=== PATIENT | male | born 1945 | race Caucasian/White ===

== ENCOUNTER → 2020-01-24 | Outpatient (CLI) | payer MEDICARE, OTHER ==
[2020-01-24 11:01] LABS: POTASSIUM 4.6 MMOL/L (3.6-5.0)
[2020-01-24 11:02] LABS: BILIRUBIN,TOTAL 1.1 MG/DL (0.1-1.0); CALCIUM 9.4 MG/DL (8.5-10.1); CREATININE SERUM 1.32 MG/DL (0.60-1.30); TOTAL PROTEIN 6.9 GM/DL (6.4-8.2)
== END ==
LOC: LAB FS 09:57
PROVIDERS: ATTEND Family Medicine
DX: E78.5 Hyperlipidemia, unspecified (principal)
CPT/HCPCS: 36415; 80053; 80061

== ENCOUNTER → 2021-04-06 | Outpatient (CLI) | payer MEDICARE ==
--- NOTE | 2021-04-06 09:54 | Diagnostic Imaging Report ---
INDICATION: Hyperlipidemia. TECHNIQUE: The CT cardiac calcium score study was performed in the routine fashion with noncontrast images of the heart followed by calculation of the cardiac calcium score. Dose reduction protocol was used. FINDINGS: Raw data images demonstrate normal caliber of the aorta. There is no mediastinal or hilar adenopathy. The visualized portions of the lung toth show no karen consolidation. There is some scarring or atelectasis in the left base. There are coronary calcifications in the LAD territory. The remaining structures appear free of calcium. The coronary calcium score is as follows: 90.6 for LAD, 0 for the remaining territories. IMPRESSION: The ct cardiac calcium score was 90.6 for calcium in the LAD. The remaining territories were negative. The findings are compatible with an overall mild plaque burden. Dictated by: Dictated on workstation # [id number]
== END ==
LOC: RAD FS 08:48
PROVIDERS: ATTEND Family Medicine
DX: E78.5 Hyperlipidemia, unspecified (principal)
CPT/HCPCS: 75571

== ENCOUNTER → 2022-01-31 | Outpatient (CLI) | payer MEDICARE ==
--- NOTE | 2022-01-31 13:33 | Diagnostic Imaging Report ---
PROCEDURE: CT abdomen and pelvis without contrast. TECHNIQUE: Multiple contiguous axial images were obtained through the abdomen and pelvis without the use of intravenous contrast. Auto Exposure Controls were utilized during the CT exam to meet ALARA standards for radiation dose reduction. INDICATION: Hematuria. COMPARISON: No prior studies are available for comparison. FINDINGS: The lung bases are clear. The liver and gallbladder are unremarkable. There is no biliary ductal dilatation. Pancreas and spleen are unremarkable. No adrenal mass is identified. There is a 6 mm nonobstructing calculus in the upper pole of the right kidney. No left-sided renal calculi are seen. No ureteral calculi or hydronephrosis is identified. There is a small cyst in the lower pole of the right kidney measuring 24 mm. Aorta is nonaneurysmal. There is diverticulosis of the descending and sigmoid colon but no evidence of acute diverticulitis. There is no free fluid or fluid collection identified. Bladder is decompressed and diffusely thick walled. Prostate is unremarkable. The bony structures are nonacute. Bony structures demonstrate anterior compression deformity involving the L2 vertebral body, likely chronic. IMPRESSION: 1. 6 mm nonobstructing right renal calculus. No ureteral calculi or hydronephrosis is identified. 2. Diffuse bladder wall thickening. While this could be owing to incomplete distention, possibility of cystitis or chronic bladder outlet obstruction cannot be entirely excluded. 3. Uncomplicated diverticulosis. Dictated by: Dictated on workstation # [id number]
== END ==
LOC: RAD 12:45
PROVIDERS: ATTEND Urology
DX: N20.0 Calculus of kidney (principal); K57.90 Diverticulosis of intestine, part unspecified, without perforation or abscess without bleeding; N32.9 Bladder disorder, unspecified
CPT/HCPCS: 74176

== ENCOUNTER 2022-02-19 05:33 | Outpatient (CLI) | payer MEDICARE ==
[~2022-02-19] VITALS: Ht 197.5 cm; Wt 130.0 kg
== END 2022-02-19 13:10 | disposition home or self-care (01) ==
LOC: PREOP 05:33
PROVIDERS: ATTEND Urology
DX: Z01.818 Encounter for other preprocedural examination (principal)

== ENCOUNTER 2022-02-26 05:51 | Day surgery (SDC) | payer MEDICARE, OTHER ==
[2022-02-26] VITALS (9 sets, daily range): BP systolic 101–135; BP diastolic 67–91
[~2022-02-26] VITALS: Ht 180 cm; Wt 130.0 kg
[2022-02-26] MEDS ORDERED: LACTATED RINGERS 1,000 ML IV PRN (06:30)
[2022-02-26] MEDS ORDERED: cefTRIAXone 1 GM PRE-MIX 50 ML IV ONE ×2 (06:30→06:52)
[2022-02-26] MEDS ORDERED: ONDANSETRON 4 MG/2 ML (SDV) Z0FRAN ONE (06:48)
[2022-02-26] MEDS ORDERED: proPOfol 200 MG/20 ML (DIPRIVAN) VIAL IV ONE (06:48)
[2022-02-26] MEDS ORDERED: MIDAZOLAM 2 MG/2 ML (VERSED) VIAL ONE (06:48)
[2022-02-26] MEDS ORDERED: SEVOFLURANE (ULTANE) 15 ML INHAL SOLN ONE ×2 (06:48→08:13)
[2022-02-26] MEDS ORDERED: fentaNYL INJ 100 MCG/2 ML AMP ONE (06:48)
[2022-02-26] MEDS ORDERED: LIDOCAINE PF 2% 5 ML (XYLOCAINE) VIAL ONE (06:48)
--- NOTE | 2022-02-26 07:26 | Progress Note-Pre Operative ---
Pre-Operative Progress Note Date of Available H&P: Feb 26, 2022 Date H&P Reviewed: Feb 26, 2022 Time H&P Reviewed: 07:26 Changes from last HP NONE Pre-Operative Diagnosis: RT RENAL STONE BEATA CA MD Feb 26, 2022 07:26
--- NOTE | 2022-02-26 07:29 | Progress Note-Post Operative ---
Post-Operative Progess Note Surgeon (s)/Cell Tuber Hand (s) Surgeon BEATA CA MD Cell Tuber Hand: NONE Pre-Operative Diagnosis RT RENAL STONE Post-Operative Diagnosis SAME Procedure & Operative Findings Date of Procedure 02/26/22 Procedure Performed/Findings RT ESWL Anesthesia Type GENERAL Estimated Blood Loss Estimated blood loss (mL): NONE Specimens/Packing Specimens Removed NONE Packing: NONE BEATA CA MD Feb 26, 2022 07:29
--- NOTE | 2022-02-26 07:31 | Discharge Inst-Urology ---
Discharge Inst-Urology Reconcile Patient Problems Problems Reviewed?: Yes Final Diagnosis RT RENAL STONE Patient Instructions/Follow Up Plan/Assessment/Instructions Please make appointment to been seen in office Sunday 03/11, KUB prior to it KUB on way home Post ESWL instructions Increase oral fluids for 48 hours and then as needed. Diet and Activity as tolerated. If questions or concerns contact your physician Or seek help at emergency department. BEATA CA MD Feb 26, 2022 07:30
[2022-02-26] MEDS ORDERED: meTOprolol 5 MG/5 ML (LOPRESSOR) VIAL ONE (07:42)
[2022-02-26] MEDS ORDERED: PHENYLEPHRINE 100 MCG/ML 10 ML (ANESTHESIA) SYR ONE (07:54)
[2022-02-26] MEDS ORDERED: FUROSEMIDE 40 MG/4 ML INJ (LASIX) ONE (08:03)
[2022-02-26] MEDS ORDERED: KETOROLAC 30 MG/ML VIAL ONE (08:03)
[2022-02-26] MEDS ORDERED: NITR-65 PO (08:09)
[2022-02-26] MEDS ORDERED: KETO10TA PO (08:09)
[2022-02-26] MEDS ORDERED: TMSL.4C PO (08:09)
--- NOTE | 2022-02-26 08:10 | Diagnostic Imaging Report ---
INDICATION: Nephrolithiasis-ESWL. TECHNIQUE: Single radiograph of the abdomen 6:12 AM CORRELATION STUDY: CT 01/31/2022 FINDINGS: Approximately 6 mm calcification over the superior pole right kidney. No calcification over the expected course of either ureter. Overlying bowel gas pattern demonstrates moderate amount of stool and gas. No obstruction. IMPRESSION: 1. Approximately 6 mm calcification superimposed over the right renal silhouette. Dictated by: Dictated on workstation # [id number]
[2022-02-26] MEDS ORDERED: ONDANSETRON 4 MG/2 ML (SDV) Z0FRAN IVP PRN (08:30)
--- NOTE | 2022-02-26 10:20 | Diagnostic Imaging Report ---
INDICATION: POST ESWL. TECHNIQUE: 2 radiograph of the abdomen 9:57 AM CORRELATION STUDY: 02/26/2022 FINDINGS: Imaging earlier in the day demonstrated approximately 6 mm calcification over the superior pole of the right kidney. This appears likely significantly fragmented since prior study earlier in the day. Grouped, coarse calcification are suggested over the right renal silhouette. Additionally, questionable calcification over expected course of the right ureter. Left kidney grossly unchanged. IMPRESSION: 1. Appears to have been development of a fragmentation of the previously noted 6 mm right renal stone. Grouped calcification projects over the right renal silhouette and potentially over the expected course the right ureter. Dictated by: Dictated on workstation # [id number]
--- NOTE | 2022-02-26 13:55 | OPERATIVE REPORT ---
DATE OF SERVICE: 02/26/2022 PREOPERATIVE DIAGNOSIS: Right renal stone. POSTOPERATIVE DIAGNOSIS: Right renal stone. OPERATION PERFORMED: Right ESWL. SURGEON: Don Ca MD. ANESTHESIA: General. COMPLICATIONS: None. DESCRIPTION OF PROCEDURE: Under satisfactory general anesthesia, the patient in supine position on the ESWL table. The right renal stone was localized. Shocks were delivered at a kV of 6 and gradually increased to 6. A total of 2000 shocks completely fragmented the stone that was not visualized anymore. The patient received 30 mg of Toradol and 40 mg of Lasix at the end of the procedure. He tolerated the procedure and anesthesia well and was sent to recovery room in stable condition. His cardiac tracing showed what looks like chronic atrial fibrillation with a controlled rhythm. We will get a 12-lead EKG in the recovery room. I will check with his whose consult and manage accordingly. Job ID: [id number] DocumentID: [id number] Dictated Date: 02/26/2022 08:05:48 Technician Preventative Medicine Date: 02/26/2022 13:53:00 Dictated By: DON CA MD
--- NOTE | 2022-02-27 15:34 | Anesthesia-General Post-Op ---
General Patient Condition Mental Status/LOC: Same as Preop Cardiovascular: Satisfactory Nausea/Vomiting: Absent Respiratory: Satisfactory Pain: Controlled Complications: Absent Post Op Complications Complications None Follow Up Care/Instructions Patient Instructions None needed. Anesthesia/Patient Condition Patient Condition Patient is doing well, no complaints, stable vital signs, no apparent adverse anesthesia problems. No complications reported per nursing. D/C home per [facility] Criteria: Yes RO MELO CRNA Feb 27, 2022 15:34
== END 2022-02-26 10:20 | disposition home or self-care (01) ==
LOC: SDC 05:51
PROVIDERS: ATTEND Urology
DX: N20.0 Calculus of kidney (principal); E66.9 Obesity, unspecified; Z68.33 Body mass index [BMI] 33.0-33.9, adult
CPT/HCPCS: 74018; 87081; 93005

== ENCOUNTER → 2022-03-11 | Outpatient (CLI) | payer MEDICARE, OTHER ==
[~2022-03-11] MED LIST: KETO10TA PO; NITR-65 PO; TMSL.4C PO
--- NOTE | 2022-03-11 16:13 | Diagnostic Imaging Report ---
INDICATION: Status post ESWL. COMPARISON: 02/26/2022. FINDINGS: Two frontal radiographic views of the abdomen were obtained. Small bowel loops are nondilated. There is no large collection of free intraperitoneal air. No unexpected extraosseous calcifications or radiopaque foreign bodies are seen. [id number] colonic air and stool is noted. Osseous structures show no gross acute abnormalities. IMPRESSION: 1. No unexpected extraosseous calcifications. 2. Nonobstructive small bowel gas pattern. Dictated by: Dictated on workstation # [id number]
== END ==
LOC: RAD 14:32
PROVIDERS: ATTEND Urology
DX: N20.0 Calculus of kidney (principal)
CPT/HCPCS: 74018

== ENCOUNTER → 2022-11-11 | Outpatient (CLI) | payer MEDICARE, OTHER ==
--- NOTE | 2022-11-11 13:53 | Diagnostic Imaging Report ---
INDICATION: Elevated white count. PA and lateral views were obtained. FINDINGS: The heart size is normal. There is patchy right basilar infiltrate. No pleural effusion or pneumothorax. Mediastinum is unremarkable. Loop recorder overlies the left chest. IMPRESSION: Patchy right basilar infiltrate suspect for early pneumonia. Dictated by: Dictated on workstation # [id number]
== END ==
LOC: RAD FS 13:31
PROVIDERS: ATTEND Family Medicine
DX: D72.829 Elevated white blood cell count, unspecified (principal)
CPT/HCPCS: 71046

== ENCOUNTER → 2022-11-11 | Outpatient (CLI) | payer MEDICARE, OTHER ==
[2022-11-11 12:27] LABS: BASOPHILS # (AUTO) 0.1 10^3/uL (0.0-0.1); BASOPHILS % (AUTO) 0 % (0-10); EOSINOPHILS % (AUTO) 0 % (0-10); HEMATOCRIT 45 % (40-54); HEMOGLOBIN 15.6 g/dL (13.3-17.7); LYMPHOCYTES # (AUTO) 0.4 10^3/uL (1.0-4.0); LYMPHOCYTES % (AUTO) 3 % (12-44); MEAN CORPUSCULAR HEMOGLOBIN 31 pg (25-34); MEAN CORPUSCULAR HGB CONC 34 g/dL (32-36); MEAN CORPUSCULAR VOLUME 90 fL (80-99); MEAN PLATELET VOLUME 10.7 fL (9.0-12.2); MONOCYTES % (AUTO) 7 % (0-12); NEUTROPHILS # (AUTO) 13.1 10^3/uL (1.8-7.8); NEUTROPHILS % (AUTO) 89 % (42-75); PLATELET COUNT 128 10^3/uL (130-400); WHITE BLOOD COUNT 14.7 10^3/uL (4.3-11.0)
[2022-11-11 12:44] LABS: CREATININE SERUM 1.72 MG/DL (0.60-1.30); POTASSIUM 4.2 MMOL/L (3.6-5.0)
[2022-11-11 12:45] LABS: ALBUMIN 3.6 GM/DL (3.2-4.5); BILIRUBIN,TOTAL 1.1 MG/DL (0.1-1.0); CALCIUM 9.3 MG/DL (8.5-10.1); TOTAL PROTEIN 7.1 GM/DL (6.4-8.2)
[2022-11-11 13:42] LABS: BAND NEUTROPHILS 6 %; BASOPHILS % (MANUAL) 0 %; EOSINOPHILS % (MANUAL) 0 %; LYMPHOCYTES % (MANUAL) 2 %; MONOCYTES % (MANUAL) 5 %; NEUTROPHILS % (MANUAL) 87 %
[2022-11-11 13:43] LABS: PLATELET CLUMPS OCCASIONAL; RBC MORPH NORMAL
[2022-11-11 13:44] LABS: SMEAR SCAN COMMENT YES
[2022-11-11 13:56] LABS: CLARITY,URINE SL CLOUDY; GLUCOSE, URINE (UA) NEGATIVE (NEGATIVE); KETONES,URINE 1+ (NEGATIVE); LEUKOCYTE ESTERASE ,URINE NEGATIVE (NEGATIVE); NITRITE,URINE NEGATIVE (NEGATIVE); PH,URINE 5.5 (5-9); PROTEIN,URINE 2+ (NEGATIVE)
[2022-11-11 14:30] LABS: RBC,URINE 0-2 /HPF
[2022-11-11 14:31] LABS: AMORPHOUS SEDIMENT,UR FEW AMOR URATES /LPF; BACTERIA,URINE TRACE /HPF; GRANULAR CASTS,URINE 0-2 /LPF; WBC,URINE 0-2 /HPF
[2022-11-11 14:46] LABS: BILIRUBIN,URINE 1+ (NEGATIVE); COLOR,URINE DK YELLOW
== END ==
LOC: LAB FS 11:53
PROVIDERS: ATTEND Family Medicine
DX: M04.1 Periodic fever syndromes (principal)
CPT/HCPCS: 36415; 80053; 81000; 85007; 85027

== ENCOUNTER → 2023-02-07 | Outpatient (CLI) | payer MEDICARE, OTHER ==
--- NOTE | 2023-02-07 17:13 | Diagnostic Imaging Report ---
INDICATION: History of nephrolithiasis. FINDINGS: Abdominal radiograph showed no suspicious calcifications; however, sensitivity limited by body habitus and colonic fecal load. IMPRESSION: No visible calculus disease. Dictated by: Dictated on workstation # [id number]
== END ==
LOC: RAD FS 09:54
PROVIDERS: ATTEND Urology
DX: Z87.442 Personal history of urinary calculi (principal)
CPT/HCPCS: 74018